=== PATIENT | female | born 1945 | race Caucasian/White ===

== ENCOUNTER 2023-01-30 06:45 | Day surgery (SDC) | payer OTHER, MEDICARE ==
[~2023-01-30] VITALS: Ht 167.6 cm; Wt 68.7 kg
[~2023-01-30 06:45] MED LIST: CEFAZOLIN SOD 2 GM in D5W 50 ML IV ONE; LR 1,000 ML IV SCH
[2023-01-30] MEDS ORDERED: fentaNYL CITRATE/PF 100 MCG/2 ML AMP ONE (09:32)
[2023-01-30] MEDS ORDERED: ACETAMINOPHEN I.V. 1000 MG 100 ML IV ONE (09:33)
[2023-01-30] MEDS ORDERED: MIDAZOLAM HCL 2 MG/2 ML VIAL (VERSED) ONE (09:33)
[2023-01-30] MEDS ORDERED: BUPIVACAINE /PF 0.25% 30 ML VIAL INJ ONE (09:47)
[2023-01-30] MEDS ORDERED: SEVOFLURANE 15 MIN GAS INH ONE (09:47)
[2023-01-30] MEDS ORDERED: SUGAMMADEX SODIUM 200 MG/2 ML VIAL IV ONE (09:47)
[2023-01-30] MEDS ORDERED: NS 100 ML BAG ONE (09:47)
[2023-01-30] MEDS ORDERED: PROPOFOL 200MG/ 20ML VIAL (DIPRIVAN) IV ONE (09:47)
[2023-01-30] MEDS ORDERED: ROCURONIUM BROMIDE 10 MG/ML (ZEMURON) ONE (09:47)
[2023-01-30] MEDS ORDERED: ONDANSETRON HCL 4 MG/2 ML VIAL ONE (09:47)
[2023-01-30] MEDS ORDERED: NS 1000 ML IV.SOLN IV ONE (09:47)
[2023-01-30] MEDS ORDERED: DEXAMETHASONE SOD PHOSPHATE 4 MG/ML VIAL ONE (09:47)
[2023-01-30] MEDS ORDERED: GLYCOPYRROLATE 0.2 MG/ML VIAL ONE (09:47)
[2023-01-30] MEDS ORDERED: LR 1,000 ML IV ONE (10:00)
[2023-01-30] MEDS ORDERED: fentaNYL CITRATE/PF 100 MCG/2 ML AMP IVP PRN (10:00)
[2023-01-30] MEDS ORDERED: ONDANSETRON HCL 4 MG/2 ML VIAL IVP PRN (10:00)
[2023-01-30] MEDS ORDERED: HYDROmorphone 1 MG/ML INJ. CARTRIDGE IVP PRN ×2 (10:00)
[2023-01-30] MEDS ORDERED: HYDROcodone/ACETAMIN 5-325 MG TAB (NORCO/ VICODIN) PO PRN ×2 (11:00)
[2023-01-30] MEDS ORDERED: D5/0.45 NS 1,000 ML IV SCH (11:00)
[2023-01-30 12:38] VITALS: O2SAT 98
[2023-01-30 15:14] VITALS: BP_SYST 100; PULSE 46; RESP 16
== END 2023-01-30 13:55 | disposition home or self-care (01) ==
LOC: SDS 06:45 → SMU 06:46 → SDS 13:55
PROVIDERS: ATTEND Colon & Rectal Surgery
DX: K80.10 Calculus of gallbladder with chronic cholecystitis without obstruction (principal); F41.9 Anxiety disorder, unspecified; E78.5 Hyperlipidemia, unspecified; Z80.0 Family history of malignant neoplasm of digestive organs; Z79.899 Other long term (current) drug therapy
CPT/HCPCS: 47563; 87081; 88304; J3490 ×3; J0690; J1100; J3465; J2405; J2704; J3010; Q9967; J7060; J7030; C1727; J0131; 76000